=== PATIENT | male | born 1940 | race Caucasian/White ===

== ENCOUNTER 2018-08-30 12:41 | Inpatient (IN) ==
--- NOTE | 2018-08-30 14:36 | Internal Med History&Physical ---
Date of Encounter: 08/30/18 Time of Encounter: 14:34 Assessment and Plan (1) Status post left partial knee replacement Current visit: Yes Status: Acute (2) Diabetes type 2, controlled Current visit: Yes Status: Chronic Controlled with current medication. Monitor fingerstick blood sugar. Will adjust medications as necessary. Qualifiers: Diabetes mellitus terminologist insulin use: without terminologist use Diabetes mellitus complication status: without complication Qualified Code(s): E11.9 - Type 2 diabetes mellitus without complications (3) CAD (coronary artery disease) Current visit: Yes Status: Chronic Controlled with current medication. Denies chest pain. Qualifiers: Coronary Disease-Associated Artery/Lesion type: unspecified vessel or lesion type [place] vs. transplanted heart: unspecified whether [place] or transplanted heart Associated angina: without angina Qualified Code(s): I25.10 - Atherosclerotic heart disease of [place] coronary artery without angina pectoris (4) GERD (gastroesophageal reflux disease) Current visit: Yes Status: Acute controlled with current meds. Qualifiers: Esophagitis presence: without esophagitis Qualified Code(s): K21.9 - Gastro-esophageal reflux disease without esophagitis Internal Medicine - H&P: HPI Admitted From: Hospital to Hospital Transfer Plans for Post Hospital Care: Home History of present illness: Mr. Ann is a 77 year old male admitted to inpatient rehab unit status post left partial medial [place] compartmental arthroplasty. This was performed on August [address] Whitehead at [facility]. states pain is controlled with current medication. Daughter at bedside. Plan to discharge to home when stable. Has 3 steps to enter. Lives alone. Past medical history includes coronary artery disease, hypertension, type II diabetes, hypercholesterolemia, history of ischemic stroke with some memory impairment, prostatic hypertrophy, Gerd, patient states last bowel movement was prior to surgery. Denies nausea vomiting, fever chills, diarrhea, shortness of breath or chest pain at this time. Past Med Surg Social Fam HX - Past Medical History Medical history: arthritis, cancer, cardiomyopathy, coronary artery disease, CVA, dementia, diabetes, hyperlipidemia, hypertension, myocardial infarction, TIA, venous stasis, valvular heart disease Additional medical history: heart attack, stroke 10/2015 and 11/2015 Psychiatric history: no psych history - Past Surgical History Surgical History: coronary bypass (CABG) Additional surgical history: hernia surgery - Social History Smoking Status: Former smoker Smokeless Tobacco Status: No Alcohol use: none Drug use: none - Family History Father Living Status: Hx Family Cardiac Disorders: Yes (mother) Hx Family Cancer: Yes (father) Hx Family GI Disorders: No Hx Family Endocrine Disorder: Yes (mother, self) Hx Family Neuromuscular Disorders: No Hx Family Neurologic Disorders: Yes (mother,self) Hx Family HEENT Disorders: No Hx Family Autoimmune Disorders: No Mother Hx Family Endocrine Disorder: Yes (Diabetes) Brother Family Member Ethnicity: Non- Living Status: Still Living Hx Family Respiratory Disorders: Yes (Fungus) Hx Family Cancer: Yes (Skin) Hx Family GI Disorders: No Hx Family Endocrine Disorder: No Hx Family Neuromuscular Disorders: No Hx Family Neurologic Disorders: No Hx Family HEENT Disorders: No Hx Family Autoimmune Disorders: No Internal Medicine - H&P: Meds Atorvastatin [Lipitor] 20 mg PO HS 11/04/15 [History] Cholecalciferol (Vitamin D3) [Vitamin D] 2,000 unit PO DAILY 11/04/15 [History] Cyanocobalamin (Vitamin B-12) [Vitamin B-12] 1,000 mcg PO DAILY 11/04/15 [History] Finasteride [Proscar] 5 mg PO DAILY 11/04/15 [History] Furosemide [Lasix] 20 mg PO DAILY 11/04/15 [History] Metformin HCl [Fortamet] 500 mg PO BID 11/04/15 [History] Tamsulosin [Flomax] 0.4 mg PO HS 11/04/15 [History] Docusate [Colace] 100 mg PO DAILY 01/17/16 [History] Hydralazine HCl 50 mg PO BID 01/17/16 [History] Melatonin [Melatin] 3 mg PO HS PRN 01/17/16 [History] Potassium Chloride [K-Tab ER] 10 meq PO DAILY 01/17/16 [History] raNITIdine HCl [Zantac] 150 mg PO BID 01/17/16 [History] Carvedilol [Coreg] 25 mg PO BID 07/31/16 [History] Clopidogrel [Plavix] 75 mg PO DAILY 07/31/16 [History] Losartan/HCTZ [Hyzaar 50-12.5 Tablet] 1 each PO DAILY 07/31/16 [History] Multivitamin [Multi-Day Vitamins] 1 each PO DAILY 07/31/16 [History] Aspirin 325 mg PO DAILY 03/04/17 [History] Escitalopram [Lexapro] 20 mg PO DAILY 03/04/17 [History] Allergy/AdvReac Type Severity Reaction Status Date / Time Donepezil [From Aricept] AdvReac See Verified 03/04/17 09:44 Comments Penicillins AdvReac Hives Verified 03/04/17 09:44 All Systems PM: A 10-system review of systems was performed and is negative for pertinent findings except as documented above in the HPI. - Constitutional Constitutional: no chills, no fever(s), no night sweats - EENT Eyes: no change in vision, no discharge, no pain, no photophobia Ears: no ear discharge, no ear pain, no tinnitus Nose, mouth and throat: no dysphagia, no nasal discharge, no neck pain, no sore throat - Cardiovascular Cardiovascular ROS IM: no chest pain, no diaphoresis, no dyspnea, no lightheadedness, no palpitations, no syncope - Respiratory Respiratory: no cough, no dyspnea, no wheezing, no excessive phlegm production - Gastrointestinal Gastrointestinal: no abdominal pain, no diarrhea, no hematemesis, no hematochezia, no melena, no nausea, no vomiting - Musculoskeletal Musculoskeletal ROS IM: no numbness, no tingling - Integumentary Integumentary IM: no rash, no unusual bruising - Neurological Neurological ROS: no confusion, no convulsions, no focal weakness, no numbness, no tingling, no tremor(s) - Hematologic/Lymphatic Hematologic/Lymphatic: no easy bruising - Head Head exam: Present: atraumatic, normocephalic - Eye Eye exam: Present: PERRL, conjuntiva pink, sclera anicteric Pupils: Present: PERRL - Neck Neck exam general surgery: Present: supple, trachea midline. Absent: lymphadenopathy - Respiratory Respiratory exam: Present: CTAB. Absent: accessory muscle use, rales, rhonchi, wheezes - Cardiovascular Cardiovascular exam: Present: RRR, +S1, +S2. Absent: diastolic murmur, gallop, rubs, systolic murmur - GI/Abdominal GI/Abdominal exam: Present: normal bowel sounds, soft, no peritoneal signs. Absent: distended, tenderness - Extremities Exam Extremities exam: Present: warm, radial pulses palpable and symmetrical. Absent: calf tenderness, cyanotic, pedal edema Additional comments: Left knee dressing dry and intact. Has leg pumps bilateral. - Neurological Exam Neurological exam: Present: CN II-XII intact, oriented X3, no focal deficits. Absent: pronater drift, facial droop, speech deficit - Skin Skin exam: Present: dry, intact
[2018-08-30] MEDS ORDERED: TRAMADOL HCL 50 MG PO PRN (15:57)
[2018-08-30] MEDS ORDERED: *HR* HYDROmorphone 2 MG TABLET PO PRN (15:57)
[2018-08-30] MEDS ORDERED: NON-FORMULARY MEDICATION 1 EACH EACH (Oxycodone Hcl 10 MG) PO PRN (15:57)
[2018-08-30] MEDS ORDERED: OXYCODONE HCL 5 MG PO PRN (15:57)
[2018-08-30] MEDS ORDERED: Ondansetron ODT 4 MG TAB.RAPDIS SL PRN (15:57)
[2018-08-30] MEDS ORDERED: *HR* Dextrose 50 % in Water (Syg) 50 ML SYRINGE IVP PRN (17:03)
[2018-08-30] MEDS ORDERED: D5% in Water 1,000 ML IVC PRN (17:03)
[2018-08-30] MEDS ORDERED: Dextrose Gel 15 GM/37.5 ML TUBE PO PRN ×2 (17:03)
[2018-08-30] MEDS ORDERED: Mag Hydrox/Al Hydrox/Simeth 30 ML UDC PO PRN (17:21)
[2018-08-30] MEDS ORDERED: *HR* OxyCODONE Immed Rel 5 MG TABLET PO PRN ×2 (17:36)
[2018-08-30] MEDS: cephALEXin 500 MG CAPSULE PO SCH ×2 (17:57→23:48)
[2018-08-30] MEDS: Insulin LISPRO 300 UNITS/3 ML VIAL SQ SCH ×2 (17:57→21:28)
[2018-08-30] MEDS: *HR* Metformin 500 MG TABLET PO SCH (17:57)
[2018-08-30] MEDS: Melatonin 3 MG TABLET PO SCH (21:25)
[2018-08-30] MEDS: hydrALAZINE 25 MG TABLET PO SCH (21:25)
[2018-08-30] MEDS: Famotidine 20 MG TABLET PO SCH (21:26)
[2018-08-31 06:01] LABS: Basophils % 0.5 %; Eosinophils # 0.2 K/mcL (0.0-0.6); Eosinophils % 2.4 %; Hematocrit 31.5 % (37.5-50.1); Hemoglobin 10.8 g/dL (12.9-16.9); Immature Granulocytes % 0.4 % (0-4); Lymphocytes # 1.4 K/mcL (0.6-4.6); Lymphocytes % 18.4 %; Mean Corpuscular HGB Conc 34.3 g/dL (31.6-35.5); Mean Corpuscular Hemoglobin 32.6 pg (28.0-33.3); Mean Corpuscular Volume 95.2 fL (83.0-100.0); Mean Platelet Volume 10.1 fL (9.4-12.4); Monocytes # 0.8 K/mcL (0.0-1.3); Monocytes % 10.1 %; Platelet Count 163 K/mcL (140-400); Red Blood Count 3.31 M/mcL (4.19-5.50); Red Cell Distribution Width 13.3 % (11.5-14.5); Segmented Neutrophils % 68.2 %
[2018-08-31 06:16] LABS: BUN/Creatinine Ratio 15 (6-26); Blood Urea Nitrogen 14 mg/dL (8-23); Calcium 9.3 mg/dL (8.6-10.3); Carbon Dioxide 29 mEq/L (23-29); Chloride 100 mEq/L (98-107); Glucose 158 mg/dL (70-105); INR 1.1; Osmolality,Calculated 284 (280-300); Potassium 3.9 mEq/L (3.5-5.1); Prothrombin Time 12.2 Seconds (9.4-12.1); Sodium 135 mEq/L (136-145); eGFR For Non-African Americans > 60 (> 60)
[2018-08-31] MEDS: Celecoxib 200 MG CAPSULE PO SCH (08:16)
[2018-08-31] MEDS: Finasteride 5 MG TABLET PO SCH (08:16)
[2018-08-31] MEDS: Cholecalciferol (D-3) 1,000 UNIT TABLET PO SCH (08:16)
[2018-08-31] MEDS: Cyanocobalamin (B-12) 1,000 MCG TABLET PO SCH (08:16)
[2018-08-31] MEDS: Losartan/HCTZ 50-12.5 TABLET PO SCH (08:17)
[2018-08-31] MEDS: hydrALAZINE 25 MG TABLET PO SCH ×3 (08:17→20:27)
[2018-08-31] MEDS: *HR* SitaGLIPtin 25 MG TABLET PO SCH (08:17)
[2018-08-31] MEDS: Multivit/Ca/Min/Fe/FA 1 TAB TABLET PO SCH (08:18)
[2018-08-31] MEDS: Furosemide 20 MG TABLET PO SCH (08:18)
[2018-08-31] MEDS: *HR* Metformin 500 MG TABLET PO SCH ×2 (08:18→17:02)
[2018-08-31] MEDS: Famotidine 20 MG TABLET PO SCH ×2 (08:18→20:27)
[2018-08-31] MEDS: Aspirin Enteric Coated 81 MG Tablet PO SCH (08:18)
[2018-08-31] MEDS: cephALEXin 500 MG CAPSULE PO SCH (08:18)
[2018-08-31] MEDS: Insulin LISPRO 300 UNITS/3 ML VIAL SQ SCH ×4 (08:19→20:27)
[2018-08-31] MEDS ORDERED: JANUMET PO SCH (09:00)
--- NOTE | 2018-08-31 12:16 | Internal Med Progress Note ---
Date of Encounter: 08/31/18 Time of Encounter: 12:14 - Assessment and plan (1) Status post left partial knee replacement Current Visit: Yes Status: Acute Assessment and plan: Continue PT and OT. Will follow progress. Pain controlled with current medication. Follow up with ortho as scheduled. (2) Diabetes type 2, controlled Current Visit: Yes Status: Chronic Assessment and plan: Controlled with current medication. Monitor fingerstick blood sugar. Will adjust medicines as necessary. Continue diabetic diet. Qualifiers: Diabetes mellitus care home insulin use: without moth exterminator use Diabetes mellitus complication status: without complication Qualified Code(s): E11.9 - Type 2 diabetes mellitus without complications (3) CAD (coronary artery disease) Current Visit: Yes Status: Chronic Assessment and plan: Denies chest pain. Continue current medications. Stable. Qualifiers: Coronary Disease-Associated Artery/Lesion type: unspecified vessel or lesion type [place] vs. transplanted heart: unspecified whether [place] or transplanted heart Associated angina: without angina Qualified Code(s): I25.10 - Atherosclerotic heart disease of [place] coronary artery without angina pectoris (4) GERD (gastroesophageal reflux disease) Current Visit: Yes Status: Acute Assessment and plan: Controlled with current medication. Qualifiers: Esophagitis presence: without esophagitis Qualified Code(s): K21.9 - Gastro-esophageal reflux disease without esophagitis (5) Constipation Current Visit: Yes Status: Acute Assessment and plan: Will order Miralax. Follow for results. Qualifiers: Constipation type: slow transit constipation Qualified Code(s): K59.01 - Slow transit constipation - Time Spent With Patient less than 15 minutes - Subjective Interval history: Patient participating well with therapy. States pain is controlled. Ambulating with therapy with walker. Continues to have compression pumps on bilateral lower extremities. States bowels have not moved prior to surgery. Discussed ordering medication to help out with. Maintaining appetite and hydration. Denies fever, chills, nausea, vomiting or diarrhea. - Constitutional Vitals: Temp Pulse Resp BP Pulse Ox 98.6 F 70 16 153/65 98 08/31/18 11:06 08/31/18 11:06 08/31/18 11:06 08/31/18 11:06 08/31/18 11:06 General appearance: Present: cooperative, A&O X 3, pleasant, no acute distress, answers questions appropriately - Head Head exam: Present: atraumatic, normocephalic - Eye Eye exam: Present: PERRL, conjuntiva pink, sclera anicteric Pupils: Present: PERRL - Neck Neck exam general surgery: Present: supple, trachea midline. Absent: lymphadenopathy - Respiratory Respiratory exam: Present: CTAB. Absent: accessory muscle use, rales, rhonchi, wheezes - Cardiovascular Cardiovascular exam: Present: RRR, +S1, +S2. Absent: diastolic murmur, gallop, rubs, systolic murmur - GI/Abdominal GI/Abdominal exam: Present: normal bowel sounds, soft, no peritoneal signs. Absent: distended, tenderness - Extremities Exam Extremities exam: Present: warm, radial pulses palpable and symmetrical. Absent: calf tenderness, cyanotic, pedal edema - [place] Comments: Left knee incision dressing dry and intact - Neurological Exam Neurological exam: Present: CN II-XII intact, oriented X3, no focal deficits. Absent: pronater drift, facial droop, speech deficit - Skin Skin exam: Present: dry, intact Internal Medicine: Result - Labs CBC & Chem 7: 08/31/18 05:50 08/31/18 05:50 Labs: Short CBC 08/31/18 Range/Units 05:50 WBC 7.4 (4.3-11.1) K/mcL Hgb 10.8 L (12.9-16.9) g/dL Hct 31.5 L (37.5-50.1) % Plt Count 163 (140-400) K/mcL Neutrophils # 5.0 (1.6-8.9) K/mcL BMP 08/31/18 05:50 Sodium 135 L Potassium 3.9 Chloride 100 Carbon Dioxide 29 BUN 14 Creatinine 0.92 Glucose 158 H Calcium 9.3 - ABG Interpretation ABG results: PT/INR, D-dimer PT 12.2 Seconds (9.4-12.1) H 08/31/18 05:50 - VTE Documentation of Mechanical Device: Graduated compression elastic hosiery Consult Discharge Plan - Plan Referrals: Boaz Freeman MD [Primary Care Provider] -
[2018-08-31] MEDS: traMADol 50 MG TABLET PO PRN (20:26)
[2018-08-31] MEDS: Melatonin 3 MG TABLET PO SCH (20:27)
[2018-09-01] MEDS: traMADol 50 MG TABLET PO PRN (06:00)
[2018-09-01] MEDS: Finasteride 5 MG TABLET PO SCH (08:25)
[2018-09-01] MEDS: hydrALAZINE 25 MG TABLET PO SCH ×3 (08:25→22:37)
[2018-09-01] MEDS: *HR* Metformin 500 MG TABLET PO SCH ×2 (08:25→16:40)
[2018-09-01] MEDS: Celecoxib 200 MG CAPSULE PO SCH (08:26)
[2018-09-01] MEDS: Losartan/HCTZ 50-12.5 TABLET PO SCH (08:26)
[2018-09-01] MEDS: Furosemide 20 MG TABLET PO SCH (08:26)
[2018-09-01] MEDS: *HR* SitaGLIPtin 25 MG TABLET PO SCH (08:26)
[2018-09-01] MEDS: Famotidine 20 MG TABLET PO SCH ×2 (08:26→22:35)
[2018-09-01] MEDS: Aspirin Enteric Coated 81 MG Tablet PO SCH (08:26)
[2018-09-01] MEDS: Insulin LISPRO 300 UNITS/3 ML VIAL SQ SCH ×4 (08:30→22:38)
--- NOTE | 2018-09-01 10:45 | Internal Med Progress Note ---
Addendum entered and electronically signed by Omar Soria DO 09/01/18 11:28: I have personally performed a face to face evaluation on this patient. I have reviewed and agree with the care plan. History and Exam by me shows: I have personally performed a face to face evaluation on this patient. I have reviewed and agree with the care plan. History and Exam by me shows: Original Note: Date of Encounter: 09/01/18 Time of Encounter: 10:43 - Assessment and plan (1) Status post left partial knee replacement Current Visit: Yes Status: Acute Assessment and plan: No acute issues. Left knee surgical incision appears healthy and healing well. Slight swelling. Patient states physical therapy has been progressing well. Patient states pain has been well-controlled with current medications. We will continue with current plan of care. (2) Diabetes type 2, controlled Current Visit: Yes Status: Chronic Assessment and plan: No acute issues. Recent fingersticks have shown glucose to be less than 200 with minimal coverage. We will continue with current medications Qualifiers: Diabetes mellitus skilled nursing insulin use: without skilled nursing use Diabetes mellitus complication status: without complication Qualified Code(s): E11.9 - Type 2 diabetes mellitus without complications (3) CAD (coronary artery disease) Current Visit: Yes Status: Chronic Assessment and plan: No acute issues. Patient denies any chest discomforts or palpitations. We will continue with current medications. Patient continues to ambulate with no complaints of dyspnea Qualifiers: Coronary Disease-Associated Artery/Lesion type: unspecified vessel or lesion type [place] vs. transplanted heart: unspecified whether [place] or transplanted heart Associated angina: without angina Qualified Code(s): I25.10 - Atherosclerotic heart disease of [place] coronary artery without angina pectoris - Time Spent With Patient less than 15 minutes - Subjective Interval history: No acute issues. Patient currently denies any discomforts or shortness of breath. Patient noted ambulating with walker. States that physical therapy has been progressing well. - Constitutional Vitals: Temp Pulse Resp BP Pulse Ox 97.7 F 65 16 166/83 95 09/01/18 06:58 09/01/18 06:58 09/01/18 06:58 09/01/18 06:58 09/01/18 06:58 General appearance: Present: cooperative, A&O X 3, pleasant, no acute distress, answers questions appropriately - Head Head exam: Present: atraumatic, normocephalic - Eye Eye exam: Present: PERRL, conjuntiva pink, sclera anicteric Pupils: Present: PERRL - Neck Neck exam general surgery: Present: supple, trachea midline. Absent: lymphadenopathy - Respiratory Respiratory exam: Present: CTAB. Absent: accessory muscle use, rales, rhonchi, wheezes Additional comments: Lungs are clear throughout upper vitals undiminished to bases. Respiratory effort appears relaxed - Cardiovascular Cardiovascular exam: Present: RRR, +S1, +S2. Absent: diastolic murmur, gallop, rubs, systolic murmur - GI/Abdominal GI/Abdominal exam: Present: normal bowel sounds, soft, no peritoneal signs. Absent: distended, tenderness - Extremities Exam Extremities exam: Present: warm, radial pulses palpable and symmetrical. Absent: calf tenderness, cyanotic, pedal edema Additional comments: Left knee surgical incision appears dry and intact with no infectious process. Slight swelling noted. - Neurological Exam Neurological exam: Present: CN II-XII intact, oriented X3, no focal deficits. Absent: pronater drift, facial droop, speech deficit - Skin Skin exam: Present: dry, intact Internal Medicine: Result - Labs CBC & Chem 7: 08/31/18 05:50 08/31/18 05:50 - ABG Interpretation ABG results: PT/INR, D-dimer PT 12.2 Seconds (9.4-12.1) H 08/31/18 05:50 - VTE Documentation of Mechanical Device: Graduated compression elastic hosiery Consult Discharge Plan - Plan Referrals: Boaz Freeman MD [Primary Care Provider] -
[2018-09-01] MEDS: Cyanocobalamin (B-12) 1,000 MCG TABLET PO SCH (12:15)
[2018-09-01] MEDS: Multivit/Ca/Min/Fe/FA 1 TAB TABLET PO SCH (12:15)
[2018-09-01] MEDS: Cholecalciferol (D-3) 1,000 UNIT TABLET PO SCH (12:15)
--- NOTE | 2018-09-01 15:12 | Physcial Medicine-Consult Note ---
Date of Encounter: 09/01/18 Time of Encounter: 15:09 Physical Medicine - AP (1) Status post left partial knee replacement Status: Acute Assessment and plan: Good progress. Discharge planning. OP PT. Needs to work on left knee extension post discharge. Continue therapy. May benefit from knee immobilizer to improve extension lag. Code(s): Z96.652 - Presence of left artificial knee joint SNOMED Code(s): 373614090 Physical Medicine - HPI - Data of Consult Requesting Physician: Lionel Mercado MD Primary Care Provider: Boaz Freeman MD - Consult Narrative History of present illness: Mr. Ann is a 77 year old RH male admitted to inpatient rehab unit status post left partial medial unicompartmental arthroplasty. This was performed on August [address] Whitehead at [facility]. He has no complaints. He is taking tylenol for pain. His appetite is good and he is moving his bowels daily. He is making good gains in therapy with current ROM -5 to 100 degrees. CC: Lionel Mercado MD Past Med Surg Social Fam HX - Past Medical History Attestation: Yes The following information was validated with the patient. Medical history: arthritis, cancer, cardiomyopathy, coronary artery disease, CVA, dementia, diabetes, GERD, hyperlipidemia, hypertension, myocardial infarct ion, TIA, venous stasis Additional medical history: heart attack, stroke 10/2015 and 11/2015, BPH Psychiatric history: no psych history - Past Surgical History Surgical History: cataract, coronary bypass (CABG), tonsilectomy Additional surgical history: hernia surgery - Social History Smoking Status: Former smoker Smokeless Tobacco Status: No Alcohol use: none Drug use: none - Family History Father Living Status: Hx Family Cardiac Disorders: Yes (mother) Hx Family Cancer: Yes (father) Hx Family GI Disorders: No Hx Family Endocrine Disorder: Yes (mother, self) Hx Family Neuromuscular Disorders: No Hx Family Neurologic Disorders: Yes (mother,self) Hx Family HEENT Disorders: No Hx Family Autoimmune Disorders: No Mother Hx Family Endocrine Disorder: Yes (Diabetes) Brother Family Member Ethnicity: Non- Living Status: Still Living Hx Family Respiratory Disorders: Yes (Fungus) Hx Family Cancer: Yes (Skin) Hx Family GI Disorders: No Hx Family Endocrine Disorder: No Hx Family Neuromuscular Disorders: No Hx Family Neurologic Disorders: No Hx Family HEENT Disorders: No Hx Family Autoimmune Disorders: No Medications and Allergies Atorvastatin [Lipitor] 20 mg PO DAILY 11/04/15 [History] Finasteride [Proscar] 5 mg PO DAILY 11/04/15 [History] Furosemide [Lasix] 20 mg PO DAILY 11/04/15 [History] Metformin HCl [Fortamet] 500 mg PO 1700 11/04/15 [History] Tamsulosin [Flomax] 0.4 mg PO HS 11/04/15 [History] Docusate [Colace] 100 mg PO HS 01/17/16 [History] Hydralazine HCl 50 mg PO TID 01/17/16 [History] Melatonin [Melatin] 3 mg PO HS 01/17/16 [History] Potassium Chloride [K-Tab ER] 20 meq PO DAILY 01/17/16 [History] raNITIdine HCl [Zantac] 150 mg PO BID 01/17/16 [History] Carvedilol [Coreg] 25 mg PO BID 07/31/16 [History] Clopidogrel [Plavix] 75 mg PO DAILY 07/31/16 [History] Multivitamin [Multi-Day Vitamins] 1 each PO DAILY 07/31/16 [History] Aspirin 81 mg PO DAILY 03/04/17 [History] Celebrex 200 mg PO DAILY 08/30/18 [History] Cholecalciferol (Vitamin D3) 1,000 units PO DAILY 08/30/18 [History] Cyanocobalamin (Vitamin B-12) 500 mcg PO DAILY 08/30/18 [History] Dilaudid 2 mg PO Q4H PRN 08/30/18 [History] Janumet 50-500 mg Tablet 1 mg PO DAILY 08/30/18 [History] Keflex 500 mg PO Q8HR 08/30/18 [History] Losartan-Hctz 100-25 mg Tab 1 mg PO DAILY 08/30/18 [History] Memantine 10 mg PO BID 08/30/18 [History] Oxycodone HCl 5 mg PO Q4-6H PRN 08/30/18 [History] Oxycodone HCl 10 mg PO Q4-6H PRN 08/30/18 [History] Tramadol HCl 50 mg PO Q6H PRN 08/30/18 [History] Tramadol HCl 100 mg PO Q6H PRN 08/30/18 [History] Tylenol 1,000 mg PO Q8H 08/30/18 [History] Tylenol 1,000 mg PO Q8H PRN 08/30/18 [History] Zofran 4 mg SL Q6HR PRN 08/30/18 [History] Allergy/AdvReac Type Severity Reaction Status Date / Time Donepezil [From Aricept] AdvReac See Verified 03/04/17 09:44 Comments Penicillins AdvReac Hives Verified 03/04/17 09:44 All systems: reviewed and no additional remarkable complaints except as stated Physical Medicine - Exam - Constitutional Vitals: Temp Pulse Resp BP Pulse Ox 97.7 F 65 16 166/83 95 09/01/18 06:58 09/01/18 06:58 09/01/18 06:58 09/01/18 06:58 09/01/18 06:58 General appearance: average body habitus, cooperative, no acute distress - Head Head exam: Present: atraumatic, normocephalic - Eye Eye exam: Present: EOMI - ENT ENT exam: Present: mucous membranes moist - Neck Neck exam: Present: full ROM - Respiratory Respiratory exam: Present: CTAB - Cardiovascular Cardiovascular exam: Present: RRR. Absent: diastolic murmur, gallop, rubs - GI/Abdominal GI/Abdominal exam: Present: normal bowel sounds, soft - Extremities Exam Extremities exam: Present: joint swelling, normal inspection. Absent: calf tenderness, full ROM - Neurological Exam Neurological exam: Present: abnormal gait, alert, CN II-XII intact, oriented X3, no focal deficits. Absent: facial droop - Psychiatric Psychiatric exam: Present: normal affect, normal mood - Skin Skin exam: Present: intact, normal color Physical Medicine - Results - Labs CBC & Chem 7: 08/31/18 05:50 08/31/18 05:50 Labs: Anemia, mild hyponatremia, mild hyperglycemia Consult Discharge Plan - Plan Referrals: Boaz Freeman MD [Primary Care Provider] -
[2018-09-01] MEDS: Melatonin 3 MG TABLET PO SCH (22:37)
[2018-09-02] MEDS: Insulin LISPRO 300 UNITS/3 ML VIAL SQ SCH ×2 (07:41→14:10)
[2018-09-02 07:42] VITALS: BP 177/82
[2018-09-02] MEDS: hydrALAZINE 25 MG TABLET PO SCH ×2 (07:59→15:47)
[2018-09-02] MEDS: Finasteride 5 MG TABLET PO SCH (07:59)
[2018-09-02] MEDS: Cyanocobalamin (B-12) 1,000 MCG TABLET PO SCH (07:59)
[2018-09-02] MEDS: Aspirin Enteric Coated 81 MG Tablet PO SCH (08:00)
[2018-09-02] MEDS: Famotidine 20 MG TABLET PO SCH (08:00)
[2018-09-02] MEDS: Celecoxib 200 MG CAPSULE PO SCH (08:00)
[2018-09-02] MEDS: *HR* SitaGLIPtin 25 MG TABLET PO SCH (08:00)
[2018-09-02] MEDS: Furosemide 20 MG TABLET PO SCH (08:00)
[2018-09-02] MEDS: *HR* Metformin 500 MG TABLET PO SCH (08:00)
[2018-09-02] MEDS: Losartan/HCTZ 50-12.5 TABLET PO SCH (08:00)
[2018-09-02] MEDS: Cholecalciferol (D-3) 1,000 UNIT TABLET PO SCH (08:00)
[2018-09-02] MEDS: Multivit/Ca/Min/Fe/FA 1 TAB TABLET PO SCH (08:01)
--- NOTE | 2018-09-02 10:59 | Discharge Summary ---
Date of Encounter: 09/02/18 Time of Encounter: 10:57 - Discharge Diagnosis (1) Status post left partial knee replacement Priority: Primary Status: Acute Comments: Patient appears relaxed and currently denies any discomforts. Patient has progressed well with physical therapy during his stay and ambulates with steady gait using a wheeled walker. Patient states that his pain has been well tolerated with current medications. Surgical incision appears healthy and healing well. Left knee continues to have slight swelling noted. Patient is to continue follow-up with orthopedic surgeon and PCP after discharge. He is continuing physical therapy as an outpatient. (2) Diabetes type 2, controlled Priority: Secondary Status: Chronic Comments: No acute issues during his stay at this facility. Patient's glucose has been fairly well-controlled with most readings less than 200. We will continue with current medication regimen after discharge. Patient recommended to follow-up with PCP. Qualifiers: Diabetes mellitus residential insulin use: without intermission coordinator use Diabetes mellitus complication status: without complication Qualified Code(s): E11.9 - Type 2 diabetes mellitus without complications (3) CAD (coronary artery disease) Priority: Secondary Status: Chronic Comments: No acute issues during his stay at this facility. Patient denies any chest discomforts or palpitations. Vital signs remained stable. Patient is continue with current home medications after discharge to home. Patient recommended to follow-up with PCP in one week. Qualifiers: Coronary Disease-Associated Artery/Lesion type: unspecified vessel or lesion type [place] vs. transplanted heart: unspecified whether [place] or transplanted heart Associated angina: without angina Qualified Code(s): I25.10 - Atherosclerotic heart disease of [place] coronary artery without angina pectoris Hospital course: Mr. Ann is a 77 year old male admitted to inpatient rehab unit status post left partial medial unicompartmental arthroplasty. This was performed on August [address] Whitehead at [facility]. Patient admitted for rehabilitation due to deconditioning. Lives alone. Past medical history includes coronary artery disease, hypertension, type II diabetes, hypercholesterolemia, history of ischemic stroke with some memory impairment, prostatic hypertrophy, and GERD. Patient progressed well with physical therapy during her stay at this facility. Patient's surgical incision on left knee appears to be healing well and healthy. Continue slight swelling noted to the left knee. Pain was well-controlled with current medications. Patient's blood sugars were well-controlled during his stay. No other acute issues or complaints. She will be discharged to home and continue his physical therapy as an outpatient. Patient recommended to follow-up with orthopedic surgeon and PCP. Discharge discussed with: patient Time spent discussing smoking cessation with patient: 3 to 10 minutes - Time Spent with Patient Total time spent providing and/or coordinating discharge services: Less than 30 minutes - Discharge Medications Home Medications: Atorvastatin [Lipitor] 20 mg PO DAILY 11/04/15 [History] Finasteride [Proscar] 5 mg PO DAILY 11/04/15 [History] Furosemide [Lasix] 20 mg PO DAILY 11/04/15 [History] Metformin HCl [Fortamet] 500 mg PO 1700 11/04/15 [History] Tamsulosin [Flomax] 0.4 mg PO HS 11/04/15 [History] Melatonin [Melatin] 3 mg PO HS 01/17/16 [History] Potassium Chloride [K-Tab ER] 20 meq PO DAILY 01/17/16 [History] RX: Docusate [Colace] 100 mg PO HS 01/17/16 [History] RX: Hydralazine HCl 50 mg PO TID 01/17/16 [History] raNITIdine HCl [Zantac] 150 mg PO BID 01/17/16 [History] Carvedilol [Coreg] 25 mg PO BID 07/31/16 [History] Clopidogrel [Plavix] 75 mg PO DAILY 07/31/16 [History] Multivitamin [Multi-Day Vitamins] 1 each PO DAILY 07/31/16 [History] RX: Aspirin 81 mg PO DAILY 03/04/17 [History] Celebrex 200 mg PO DAILY 08/30/18 [History] Cholecalciferol (Vitamin D3) 1,000 units PO DAILY 08/30/18 [History] Cyanocobalamin (Vitamin B-12) 500 mcg PO DAILY 08/30/18 [History] Dilaudid 2 mg PO Q4H PRN 08/30/18 [History] Janumet 50-500 mg Tablet 1 mg PO DAILY 08/30/18 [History] Keflex 500 mg PO Q8HR 08/30/18 [History] Losartan-Hctz 100-25 mg Tab 1 mg PO DAILY 08/30/18 [History] Memantine 10 mg PO BID 08/30/18 [History] Oxycodone HCl 5 mg PO Q4-6H PRN 08/30/18 [History] Oxycodone HCl 10 mg PO Q4-6H PRN 08/30/18 [History] Tramadol HCl 50 mg PO Q6H PRN 08/30/18 [History] Tramadol HCl 100 mg PO Q6H PRN 08/30/18 [History] Tylenol 1,000 mg PO Q8H 08/30/18 [History] Tylenol 1,000 mg PO Q8H PRN 08/30/18 [History] Zofran 4 mg SL Q6HR PRN 08/30/18 [History] Allergies/Adverse Reactions: Allergy/AdvReac Type Severity Reaction Status Date / Time Donepezil [From Aricept] AdvReac See Verified 03/04/17 09:44 Comments Penicillins AdvReac Hives Verified 03/04/17 09:44 Date of admission: 08/30/18 14:01 Primary care physician: Boaz Freeman MD Consults: 08/30/18 16:02 Consult to Occupational Therapy [CONS] Routine Comment: Evaluate, develop and implement POC Reason for Consult: Eval Does patient have active BEDREST order?: No Is patient medically & hemodynamically stable?: Yes Patient assessed for mobility or mobilized this visit?: No Consult to Physical Therapy [CONS] Routine Comment: Evaluate, develop and implement POC Reason for Consult: Eval Does patient have active BEDREST order?: No Is patient medically & hemodynamically stable?: Yes Patient assessed for mobility or mobilized this visit?: Yes Consult to Recreational Therapy [CONS] Routine Comment: Evaluate, develop and implement POC Consult to Production Control Specialist [CONS] Routine Reason for SW Consult: Discharge planning 09/01/18 11:38 Consult to Physical Medicine/Rehab [CONS] Routine Reason for Consult: partial knee replacement Time Notified: 12:00 Call Completed: Yes Discharging clinician: Ketty Pollock - Constitutional Vitals: Temp Pulse Resp BP Pulse Ox 97.9 F 89 18 177/82 96 09/02/18 07:00 09/02/18 07:00 09/02/18 07:00 09/02/18 07:00 09/02/18 07:00 General appearance: Present: cooperative, A&O X 3, pleasant, no acute distress, answers questions appropriately - Head Head exam: Present: atraumatic, normocephalic - Eye Eye exam: Present: PERRL, conjuntiva pink, sclera anicteric Pupils: Present: PERRL - Neck Neck exam general surgery: Present: supple, trachea midline. Absent: lymphadenopathy - Respiratory Respiratory exam: Present: CTAB. Absent: accessory muscle use, rales, rhonchi, wheezes - Cardiovascular Cardiovascular exam: Present: RRR, +S1, +S2. Absent: diastolic murmur, gallop, rubs, systolic murmur - GI/Abdominal GI/Abdominal exam: Present: normal bowel sounds, soft, no peritoneal signs. Absent: distended, tenderness - Extremities Exam Extremities exam: Present: warm, radial pulses palpable and symmetrical. Absent: calf tenderness, cyanotic, pedal edema Additional comments: Left knee with surgical incision that appears to be healing well and healthy. No infectious process noted. Left knee remains slightly swollen. - Neurological Exam Neurological exam: Present: CN II-XII intact, oriented X3, no focal deficits. Absent: pronater drift, facial droop, speech deficit - Skin Skin exam: Present: dry, intact - Patient Status Disposition: Home, Self-Care Condition: Good Overall status at discharge: patient is progressing back to baseline - Discharge Instructions Follow Up With: Boaz Freeman MD [Primary Care Provider] - - Diet and Activity Activity: ambulate only with your walker, as per physical therapy Diet: diabetic diet, low fat, low cholesterol, low salt diet - VTE Documentation of Mechanical Device: Graduated compression elastic hosiery
--- NOTE | 2018-09-02 14:09 | Internal Med Progress Note ---
Date of Encounter: 09/02/18 Time of Encounter: 14:07 - Assessment and plan (1) Diabetes type 2, controlled Current Visit: Yes Status: Chronic Assessment and plan: stable and seems to be reaosnbely well controlled no new change . Advice to continue to follow diet and check Blood sugars as often as possible Qualifiers: Diabetes mellitus termite control service representative insulin use: without group home use Diabetes mellitus complication status: without complication Qualified Code(s): E11.9 - Type 2 diabetes mellitus without complications (2) CAD (coronary artery disease) Current Visit: Yes Status: Chronic Assessment and plan: stable no new change no change in meds pt is ambulatory and without any chest pain . Qualifiers: Coronary Disease-Associated Artery/Lesion type: unspecified vessel or lesion type [place] vs. transplanted heart: unspecified whether [place] or transplanted heart Associated angina: without angina Qualified Code(s): I25.10 - Atherosclerotic heart disease of [place] coronary artery without angina pectoris (3) GERD (gastroesophageal reflux disease) Current Visit: Yes Status: Acute Qualifiers: Esophagitis presence: without esophagitis Qualified Code(s): K21.9 - Gastro-esophageal reflux disease without esophagitis (4) Constipation Current Visit: Yes Status: Chronic Assessment and plan: on multiple different narcotics which could be an added reason discussed with him increase fluid intake roughage and meds as given Qualifiers: Constipation type: slow transit constipation Qualified Code(s): K59.01 - Slow transit constipation - Subjective Interval history: cross coverage. Pt is getting ready for discharge he feels fine epcet for constipation for which he is taking meds No fever or chill no SOB nausea vomiting or diarrhea eating well - Constitutional Vitals: Temp Pulse Resp BP Pulse Ox 97.9 F 89 18 177/82 96 09/02/18 07:00 09/02/18 07:00 09/02/18 07:00 09/02/18 07:00 09/02/18 07:00 General appearance: Present: cooperative, A&O X 3, pleasant, no acute distress, answers questions appropriately - Head Head exam: Present: atraumatic - Eye Eye exam: Present: EOMI, PERRL Pupils: Present: PERRL - Neck Neck exam general surgery: Present: full ROM, supple. Absent: tenderness, nuchal rigidity - Respiratory Respiratory exam: Present: CTAB. Absent: accessory muscle use, chest wall tenderness, respiratory distress, rhonchi, stridor, wheezes, tachypnea - Cardiovascular Cardiovascular exam: Present: RRR, +S1, +S2, systolic murmur. Absent: irregular rhythm, JVD Additional comments: Soft systolic murmur No radiation noted - GI/Abdominal GI/Abdominal exam: Present: normal bowel sounds, soft. Absent: distended, guar ding, rebound, splenomegaly, tenderness - Extremities Exam Extremities exam: Absent: pedal edema, tenderness - Neurological Exam Neurological exam: Present: CN II-XII intact, oriented X3, no focal deficits. Absent: facial droop, speech deficit Internal Medicine: Result - Labs CBC & Chem 7: 08/31/18 05:50 08/31/18 05:50 - ABG Interpretation ABG results: PT/INR, D-dimer PT 12.2 Seconds (9.4-12.1) H 08/31/18 05:50 - VTE Documentation of Mechanical Device: Graduated compression elastic hosiery Consult Discharge Plan - Plan Referrals: Boaz Freeman MD [Primary Care Provider] - 09/06/18 1:30 pm
== END 2018-09-02 16:00 | disposition home or self-care (01) | DRG 560 ==
LOC: INPGRE 14:01